=== PATIENT | male | born 1945 | race Caucasian/White ===

== ENCOUNTER 2022-12-15 08:59 | Emergency (ER) | payer OTHER ==
[2022-12-15] MEDS ORDERED: Iopamidol 300 61% 100 ML VIAL FS ONE (09:01)
[2022-12-15] MEDS ORDERED: Dicyclomine 20 MG/2 ML VIAL ONE (09:29)
[2022-12-15 10:14] LABS: Bilirubin Neg (Negative); Blood, Urine 250 (Negative); Clarity Slightly Cloudy (Clear); Glucose, Urine (Dipstick) Normal (Negative); Ketone, Urine 5 mg/dL (Negative); Leukocyte 500 (Negative); Nitrite Negative (Negative); Protein, Urine (Dipstick) 100 mg/dl (Neg-Trace); Specific Gravity, Urine 1.015 (1.005-1.030)
[2022-12-15 10:23] LABS: RBC/HPF Greater than 50 HPF (0-3)
[2022-12-15 10:24] LABS: CAUTI Indications for Culture Pelvic or flank pain; Renal Epithelial 0-3 HPF (None Seen)
[2022-12-15 10:25] LABS: Bacteria/HPF 1+ HPF (None Seen)
[2022-12-15 10:26] LABS: Urine Culture Reflex No No
[2022-12-15 10:58] LABS: Hematocrit 42.1 % (38.8-50.0); Hemoglobin 14.2 g/dL (13.5-17.5); Mean Corpuscular HGB CONC 33.7 g/dL (32.0-36.0); Mean Corpuscular Hemoglobin 30.1 pg (27.0-33.0); Mean Corpuscular Volume 89.2 fl (81.2-95.1); Mean Platelet Volume 9.9 fl (7.4-10.4); Platelet Count 193 10x3/uL (150-450); Red Blood Cell (RBC) Count 4.72 10x6/uL (4.32-5.72)
[2022-12-15 11:08] LABS: MDiff Complete? YES
[2022-12-15 11:17] LABS: Band 1 % (5-11); Lymphocytes 9 % (21-51); Monocytes 6 % (0-10); Neutrophil 82 % (42-75); Platelet Adequacy Comment Appears Adequate; RBC Morph Comment Within Normal Limits
[2022-12-15 11:18] LABS: ALT (SGPT) 8 U/L (8-55); AST (SGOT) 15 U/L (5-34); Albumin 3.3 g/dL (3.4-4.8); Alkaline Phosphatase 1704 U/L (40-110); Anion Gap 16 mmol/L (10-20); BUN (Urea Nitrogen) 20 mg/dL (8.4-25.7); Bilirubin, Total 0.8 mg/dL (0.2-1.2); Calc. Creatinine Clearance 0 mL/min (70-130); Carbon Dioxide 20 mmol/L (23-31); Chloride 105 mmol/L (98-107); Estimated GFR 63; Globulin 2.3 g/dL (2.4-3.5); Glucose 109 mg/dL (83-110); Magnesium 2.2 mg/dL (1.6-2.6); Potassium 4.1 mmol/L (3.5-5.1); Protein, Total 5.6 g/dL (5.8-8.1); Sodium 137 mmol/L (136-145)
[2022-12-15] MEDS ORDERED: cefTRIAXone (ROCEPHIN) 1 GM VIAL ONE (13:12)
[2022-12-16 11:54] LABS: #Monocytes 0.6 10x3/uL (0.0-1.1); #Neutrophils 5.1 10x3/uL (1.5-8.4); %Basophils 0.3 % (0.0-2.0); %Eosinophils 0.5 % (0.0-6.0); %Lymphocytes 13.5 % (18.0-47.0); %Monocytes 8.6 % (0.0-10.0); %Neutrophils 76.5 % (40.0-75.0); Hematocrit 42.8 % (38.8-50.0); Hemoglobin 14.5 g/dL (13.5-17.5); Mean Corpuscular HGB CONC 33.9 g/dL (32.0-36.0); Mean Corpuscular Volume 88.6 fl (81.2-95.1); Mean Platelet Volume 9.7 fl (7.4-10.4); Platelet Count 194 10x3/uL (150-450); Red Blood Cell (RBC) Count 4.83 10x6/uL (4.32-5.72); White Blood Cell (WBC) Count 6.7 10x3/uL (3.5-10.5)
[2022-12-16 12:04] LABS: ALT (SGPT) 7 U/L (8-55); AST (SGOT) 12 U/L (5-34); Albumin 3.1 g/dL (3.4-4.8); Alkaline Phosphatase 1467 U/L (40-110); Anion Gap 17 mmol/L (10-20); BUN (Urea Nitrogen) 23 mg/dL (8.4-25.7); Bilirubin, Total 0.5 mg/dL (0.2-1.2); Calc. Creatinine Clearance 0 mL/min (70-130); Calcium 7.6 mg/dL (7.8-10.44); Carbon Dioxide 18 mmol/L (23-31); Chloride 105 mmol/L (98-107); Estimated GFR 69; Globulin 2.3 g/dL (2.4-3.5); Glucose 98 mg/dL (83-110); Potassium 4.2 mmol/L (3.5-5.1); Protein, Total 5.4 g/dL (5.8-8.1); Sodium 136 mmol/L (136-145)
[2022-12-17 06:50] LABS: ALT (SGPT) 7 U/L (8-55); AST (SGOT) 12 U/L (5-34); Albumin 3.1 g/dL (3.4-4.8); Alkaline Phosphatase 1399 U/L (40-110); Anion Gap 15 mmol/L (10-20); BUN (Urea Nitrogen) 25 mg/dL (8.4-25.7); Bilirubin, Total 0.5 mg/dL (0.2-1.2); Calc. Creatinine Clearance 0 mL/min (70-130); Calcium 7.9 mg/dL (7.8-10.44); Carbon Dioxide 19 mmol/L (23-31); Chloride 106 mmol/L (98-107); Estimated GFR 69; Globulin 2.4 g/dL (2.4-3.5); Glucose 95 mg/dL (83-110); Potassium 4.2 mmol/L (3.5-5.1); Protein, Total 5.5 g/dL (5.8-8.1); Sodium 136 mmol/L (136-145)
== END 2022-12-17 01:02 ==
LOC: CSHERS 08:59
DX: N13.30 Unspecified hydronephrosis (principal); K62.89 Other specified diseases of anus and rectum; I10 Essential (primary) hypertension
CPT/HCPCS: 36415; 74177; 80053; 81001; 83735; 85025; 96372; 96374; J0696; Q9967

== ENCOUNTER 2022-12-22 21:03 | Inpatient (IN) | payer OTHER ==
[2022-12-22] MEDS ORDERED: Morphine 4 MG/ML VIAL ONE (22:01)
[2022-12-22] MEDS ORDERED: Ondansetron PF 4 MG/2 ML Vial ONE (22:01)
[2022-12-22 23:17] LABS: Hematocrit 43.2 % (38.8-50.0); Hemoglobin 14.4 g/dL (13.5-17.5); Mean Corpuscular HGB CONC 33.3 g/dL (32.0-36.0); Mean Corpuscular Hemoglobin 29.9 pg (27.0-33.0); Mean Corpuscular Volume 89.6 fl (81.2-95.1); Mean Platelet Volume 9.8 fl (7.4-10.4); Platelet Count 229 10x3/uL (150-450); RBC Distribution Width 13.9 % (11.5-14.5); Red Blood Cell (RBC) Count 4.82 10x6/uL (4.32-5.72)
[2022-12-22 23:21] LABS: ALT (SGPT) 21 U/L (8-55); AST (SGOT) 45 U/L (5-34); Albumin 3.3 g/dL (3.4-4.8); Alkaline Phosphatase 1637 U/L (40-110); Anion Gap 20 mmol/L (10-20); BUN (Urea Nitrogen) 25 mg/dL (8.4-25.7); Bilirubin, Total 1.1 mg/dL (0.2-1.2); Calc. Creatinine Clearance 0 mL/min (70-130); Carbon Dioxide 19 mmol/L (23-31); Chloride 103 mmol/L (98-107); Estimated GFR 45; Globulin 2.4 g/dL (2.4-3.5); Glucose 141 mg/dL (83-110); Lipase 25 U/L (8-78); Magnesium 3.1 mg/dL (1.6-2.6); Protein, Total 5.7 g/dL (5.8-8.1); Sodium 137 mmol/L (136-145)
[2022-12-22 23:45] LABS: Bilirubin 3+ (Negative); Blood, Urine 250 (Negative); Clarity Slightly Cloudy (Clear); Glucose, Urine (Dipstick) Normal (Negative); Ketone, Urine 15 mg/dL (Negative); Leukocyte 100 (Negative); Nitrite Negative (Negative); Protein, Urine (Dipstick) 30 mg/dl (Neg-Trace); Urobilinogen 12 mg/dL (Less than 2)
[2022-12-23 00:01] LABS: Bacteria/HPF 2+ HPF (None Seen); CAUTI Indications for Culture Pelvic or flank pain; RBC/HPF Greater than 50 HPF (0-3); Squamous Epithelial 0-3 HPF (0-3)
[2022-12-23 00:02] LABS: Mucous/LPF Rare LPF (<2+); Urine Culture Reflex Yes Yes
[2022-12-23 00:06] LABS: Manual Diff?? YES
[2022-12-23 00:16] LABS: Band 19 % (5-11); Lymphocytes 4 % (21-51); Monocytes 7 % (0-10); Reactive Lymphocytes 1 % (0-10)
[2022-12-23 00:19] LABS: RBC Morph Comment Within Normal Limits; Vacuoles SLIGHT
[2022-12-23 00:20] LABS: Platelet Adequacy Comment Appears Adequate
[2022-12-23] MEDS ORDERED: cefTRIAXone (ROCEPHIN) 1 GM VIAL ONE (00:25)
[2022-12-23 00:31] LABS: Neutrophil 69 % (42-75)
[2022-12-23 00:34] LABS: MDiff Complete? YES
[2022-12-23 01:50] LABS: Lactic Acid 2.6 mmol/L (0.5-2.2)
[2022-12-23] MEDS ORDERED: Morphine 4 MG/ML VIAL ONE (01:54)
[2022-12-23] MEDS ORDERED: Piperacillin/Tazobactam 3.375 GM VIAL ONE (02:40)
[2022-12-23] MEDS ORDERED: Calcium Carbonate 500 MG ChewTAB PO PRN (02:57)
[2022-12-23] MEDS ORDERED: Senokot S 8.6-50 MG TAB PO PRN (02:57)
[2022-12-23] MEDS ORDERED: Ondansetron PF 4 MG/2 ML Vial IVP PRN (02:57)
[2022-12-23] MEDS ORDERED: Acetaminophen 325 MG TAB PO PRN (02:57)
[2022-12-23] MEDS ORDERED: HYDROcodone/Acetaminophen 5/325 mg Tablet PO PRN (02:57)
[2022-12-23] MEDS ORDERED: Ondansetron PF 4 MG/2 ML Vial ONE (03:30)
[2022-12-23] MEDS ORDERED: Morphine 2 MG/ML VIAL SLOW IVP PRN (04:07)
[2022-12-23] MEDS ORDERED: Dextrose 5 % And 0.9 % NaCl 1,000 ML IV SCH (04:15)
[2022-12-23] MEDS ORDERED: Albumin 25% 25 GM/100 ML BOT IVPB SCH (04:30)
[2022-12-23 05:29] LABS: INR-International Normal Ratio 1.1; PTT 29.4 sec (22.0-33.0); Prothrombin Time 12.2 sec (9.5-12.1)
[2022-12-23 05:33] LABS: Hematocrit 47.6 % (38.8-50.0); Hemoglobin 15.4 g/dL (13.5-17.5); Lactic Acid 3.6 mmol/L (0.5-2.2); Mean Corpuscular HGB CONC 32.4 g/dL (32.0-36.0); Mean Corpuscular Hemoglobin 32.2 pg (27.0-33.0); Mean Corpuscular Volume 99.6 fl (81.2-95.1); Red Blood Cell (RBC) Count 4.78 10x6/uL (4.32-5.72); White Blood Cell (WBC) Count 7.1 10x3/uL (3.5-10.5)
[2022-12-23 05:37] LABS: ALT (SGPT) 44 U/L (8-55); AST (SGOT) 78 U/L (5-34); Albumin 3.1 g/dL (3.4-4.8); Alkaline Phosphatase 1595 U/L (40-110); Anion Gap 21 mmol/L (10-20); BUN (Urea Nitrogen) 28 mg/dL (8.4-25.7); Calc. Creatinine Clearance 0 mL/min (70-130); Calcium 7.7 mg/dL (7.8-10.44); Carbon Dioxide 14 mmol/L (23-31); Chloride 108 mmol/L (98-107); Estimated GFR 50; Globulin 2.6 g/dL (2.4-3.5); Glucose 148 mg/dL (83-110); Potassium 5.2 mmol/L (3.5-5.1); Protein, Total 5.7 g/dL (5.8-8.1); Sodium 138 mmol/L (136-145)
[2022-12-23 05:48] LABS: Mean Platelet Volume 10.2 fl (7.4-10.4); Platelet Count 215 10x3/uL (150-450)
[2022-12-23 05:52] LABS: MDiff Complete? YES
[2022-12-23] MEDS ORDERED: Vancomycin 1 GM in Sodium Chloride 0.9% 250 ML 250 ML IVPB SCH (06:00)
[2022-12-23 06:01] LABS: Band 22 % (5-11); Lymphocytes 2 % (21-51); Monocytes 4 % (0-10); Neutrophil 72 % (42-75)
[2022-12-23 06:03] LABS: Platelet Adequacy Comment Appears Adequate; RBC Morph Comment Within Normal Limits
[2022-12-23] MEDS ORDERED: Vancomycin 1 GM VIAL ONE (07:17)
[2022-12-23] MEDS: Aspirin 81 mg Enteric Coated Tablet PO SCH (08:49)
[2022-12-23] MEDS: Pantoprazole 40 MG VIAL IVP SCH (08:49)
[2022-12-23] MEDS ORDERED: Meropenem 1 GM in Sodium Chloride 0.9% 100 ML IVPB SCH (10:00)
[2022-12-23] MEDS ORDERED: Sodium Bicarbonate 150 MEQ in Dextrose 5% in Water 1,000 ML IV SCH ×2 (11:00→12:00)
[2022-12-23] MEDS: Albumin 25% 25 GM/100 ML BOT IVPB SCH ×3 (11:03→23:45)
[2022-12-23 15:10] LABS: Anion Gap 19 mmol/L (10-20); BUN (Urea Nitrogen) 33 mg/dL (8.4-25.7); Calc. Creatinine Clearance 33 mL/min (70-130); Calcium 7.4 mg/dL (7.8-10.44); Carbon Dioxide 18 mmol/L (23-31); Chloride 103 mmol/L (98-107); Estimated GFR 47; Glucose 208 mg/dL (83-110); Potassium 4.4 mmol/L (3.5-5.1); Sodium 136 mmol/L (136-145)
[2022-12-23] MEDS ORDERED: Lactated Ringer's 1,000 ML IV SCH (15:45)
[2022-12-23] MEDS ORDERED: Sodium Bicarbonate 150 MEQ, Admixture Fee 1 EACH in Dextrose 5% in Water 1,000 ML IV SCH ×2 (17:00→18:59)
[2022-12-23] MEDS: Meropenem 1 GM in Sodium Chloride 0.9% 100 ML IVPB SCH (17:22)
[2022-12-23] MEDS: Oxybutynin 5 MG TAB PO PRN (17:23)
[2022-12-23 18:33] LABS: Anion Gap 18 mmol/L (10-20); BUN (Urea Nitrogen) 32 mg/dL (8.4-25.7); Calc. Creatinine Clearance 35 mL/min (70-130); Calcium 7.3 mg/dL (7.8-10.44); Carbon Dioxide 19 mmol/L (23-31); Chloride 102 mmol/L (98-107); Estimated GFR 49; Glucose 129 mg/dL (83-110); Potassium 4.2 mmol/L (3.5-5.1); Sodium 135 mmol/L (136-145)
[2022-12-23 18:42] LABS: Lactic Acid 4.7 mmol/L (0.5-2.2)
[2022-12-23] MEDS ORDERED: Sodium Chloride 0.9% 1,000 ML IV SCH (18:59)
[2022-12-23] MEDS: Vancomycin HCl 125 MG Capsule PO SCH (20:04)
[2022-12-23] MEDS: Tamsulosin HCl 0.4 MG CAP PO SCH (20:04)
[2022-12-23 21:52] LABS: Anion Gap 18 mmol/L (10-20); BUN (Urea Nitrogen) 32 mg/dL (8.4-25.7); Calc. Creatinine Clearance 34 mL/min (70-130); Calcium 7.6 mg/dL (7.8-10.44); Carbon Dioxide 22 mmol/L (23-31); Chloride 102 mmol/L (98-107); Estimated GFR 49; Glucose 141 mg/dL (83-110); Potassium 3.9 mmol/L (3.5-5.1); Sodium 138 mmol/L (136-145)
[2022-12-23 21:55] LABS: Lactic Acid 4.2 mmol/L (0.5-2.2)
[2022-12-24] MEDS: Vancomycin HCl 125 MG Capsule PO SCH ×4 (01:20→20:00)
[2022-12-24 04:32] LABS: ALT (SGPT) 33 U/L (8-55); AST (SGOT) 50 U/L (5-34); Albumin 3.3 g/dL (3.4-4.8); Alkaline Phosphatase 823 U/L (40-110); Anion Gap 16 mmol/L (10-20); BUN (Urea Nitrogen) 29 mg/dL (8.4-25.7); Calc. Creatinine Clearance 36 mL/min (70-130); Calcium 7.4 mg/dL (7.8-10.44); Carbon Dioxide 26 mmol/L (23-31); Chloride 101 mmol/L (98-107); Estimated GFR 52; Globulin 1.7 g/dL (2.4-3.5); Glucose 134 mg/dL (83-110); Magnesium 2.6 mg/dL (1.6-2.6); Potassium 3.6 mmol/L (3.5-5.1); Sodium 139 mmol/L (136-145)
[2022-12-24 04:36] LABS: Hematocrit 34.5 % (38.8-50.0); Hemoglobin 12.1 g/dL (13.5-17.5); Mean Corpuscular HGB CONC 35.1 g/dL (32.0-36.0); Mean Corpuscular Hemoglobin 30.9 pg (27.0-33.0); Mean Corpuscular Volume 88.2 fl (81.2-95.1); Platelet Count 211 10x3/uL (150-450); RBC Distribution Width 14.5 % (11.5-14.5); Red Blood Cell (RBC) Count 3.91 10x6/uL (4.32-5.72); White Blood Cell (WBC) Count 9.5 10x3/uL (3.5-10.5)
[2022-12-24 04:40] LABS: MDiff Complete? YES
[2022-12-24 04:55] LABS: Band 35 % (5-11); Lymphocytes 5 % (21-51); Metamyelocyte 2 % (0-0); Monocytes 9 % (0-10); Neutrophil 49 % (42-75)
[2022-12-24 04:56] LABS: RBC Morph Comment Within Normal Limits; Toxic Granulation SLIGHT; Vacuoles SLIGHT
[2022-12-24 04:57] LABS: Platelet Adequacy Comment Appears Adequate
[2022-12-24] MEDS: Vancomycin HCl 750 MG in Sodium Chloride 0.9% 250 ML 250 ML IVPB SCH (05:04)
[2022-12-24] MEDS: Meropenem 1 GM in Sodium Chloride 0.9% 100 ML IVPB SCH ×2 (05:04→17:03)
[2022-12-24] MEDS: Albumin 25% 25 GM/100 ML BOT IVPB SCH (05:05)
[2022-12-24] MEDS: Pantoprazole 40 MG VIAL IVP SCH (08:50)
[2022-12-24] MEDS: Aspirin 81 mg Enteric Coated Tablet PO SCH (08:50)
[2022-12-24] MEDS: Oxybutynin 5 MG TAB PO PRN (08:50)
[2022-12-24] MEDS ORDERED: Potassium Chloride 20 MEQ TAB PO SCH (12:00)
[2022-12-24] MEDS: Lactated Ringer's 1,000 ML IV SCH (12:49)
[2022-12-24] MEDS: Tamsulosin HCl 0.4 MG CAP PO SCH (20:58)
[2022-12-25] MEDS: Lactated Ringer's 1,000 ML IV SCH (01:00)
[2022-12-25] MEDS: Vancomycin HCl 125 MG Capsule PO SCH ×4 (02:08→21:49)
[2022-12-25 03:59] LABS: ALT (SGPT) 21 U/L (8-55); AST (SGOT) 33 U/L (5-34); Alkaline Phosphatase 662 U/L (40-110); Anion Gap 16 mmol/L (10-20); BUN (Urea Nitrogen) 24 mg/dL (8.4-25.7); Bilirubin, Total 0.7 mg/dL (0.2-1.2); Calc. Creatinine Clearance 45 mL/min (70-130); Calcium 7.2 mg/dL (7.8-10.44); Carbon Dioxide 26 mmol/L (23-31); Chloride 102 mmol/L (98-107); Estimated GFR 62; Globulin 1.8 g/dL (2.4-3.5); Glucose 86 mg/dL (83-110); Magnesium 2.5 mg/dL (1.6-2.6); Potassium 3.5 mmol/L (3.5-5.1); Protein, Total 4.8 g/dL (5.8-8.1); Sodium 140 mmol/L (136-145)
[2022-12-25 04:22] LABS: Band 15 % (5-11); Lymphocytes 11 % (21-51); Monocytes 4 % (0-10); Neutrophil 70 % (42-75)
[2022-12-25 04:23] LABS: Platelet Adequacy Comment Appears Adequate; RBC Morph Comment Within Normal Limits
[2022-12-25 04:24] LABS: Hematocrit 36.3 % (38.8-50.0); Hemoglobin 12.3 g/dL (13.5-17.5); MDiff Complete? YES; Mean Corpuscular HGB CONC 33.9 g/dL (32.0-36.0); Mean Corpuscular Hemoglobin 30.8 pg (27.0-33.0); Mean Corpuscular Volume 90.8 fl (81.2-95.1); Mean Platelet Volume 10.6 fl (7.4-10.4); Platelet Count 177 10x3/uL (150-450); RBC Distribution Width 14.7 % (11.5-14.5); White Blood Cell (WBC) Count 7.6 10x3/uL (3.5-10.5)
[2022-12-25 06:04] LABS: Vancomycin, Trough 8.9 ug/mL
[2022-12-25] MEDS: Meropenem 1 GM in Sodium Chloride 0.9% 100 ML IVPB SCH ×2 (06:47→18:00)
[2022-12-25] MEDS: Vancomycin 1 GM in Sodium Chloride 0.9% 250 ML 250 ML IVPB SCH (06:49)
[2022-12-25] MEDS: Vancomycin HCl 750 MG in Sodium Chloride 0.9% 250 ML 250 ML IVPB SCH (07:18)
[2022-12-25] MEDS: Saccharomyces boulardii 250 MG CAP PO SCH (08:17)
[2022-12-25] MEDS: Aspirin 81 mg Enteric Coated Tablet PO SCH (08:18)
[2022-12-25] MEDS: Pantoprazole 40 MG VIAL IVP SCH (08:19)
[2022-12-25] MEDS ORDERED: Bicalutamide 50 MG TAB PO SCH (13:00)
[2022-12-25] MEDS ORDERED: Potassium Chloride 20 MEQ TAB PO SCH (17:00)
[2022-12-25] MEDS: Tamsulosin HCl 0.4 MG CAP PO SCH (21:36)
[2022-12-26] MEDS: Vancomycin HCl 125 MG Capsule PO SCH ×4 (03:11→22:26)
[2022-12-26 05:52] LABS: ALT (SGPT) 13 U/L (8-55); AST (SGOT) 19 U/L (5-34); Albumin 2.8 g/dL (3.4-4.8); Alkaline Phosphatase 757 U/L (40-110); Anion Gap 12 mmol/L (10-20); BUN (Urea Nitrogen) 22 mg/dL (8.4-25.7); Bilirubin, Total 0.7 mg/dL (0.2-1.2); Calc. Creatinine Clearance 59 mL/min (70-130); Calcium 7.3 mg/dL (7.8-10.44); Carbon Dioxide 26 mmol/L (23-31); Chloride 104 mmol/L (98-107); Estimated GFR 83; Globulin 1.8 g/dL (2.4-3.5); Glucose 87 mg/dL (83-110); Magnesium 2.4 mg/dL (1.6-2.6); Potassium 3.8 mmol/L (3.5-5.1); Protein, Total 4.6 g/dL (5.8-8.1); Sodium 138 mmol/L (136-145)
[2022-12-26] MEDS: Meropenem 1 GM in Sodium Chloride 0.9% 100 ML IVPB SCH ×3 (06:07→21:15)
[2022-12-26] MEDS: Vancomycin 1 GM in Sodium Chloride 0.9% 250 ML 250 ML IVPB SCH (06:08)
[2022-12-26 06:24] LABS: Band 9 % (5-11); Lymphocytes 16 % (21-51); Monocytes 6 % (0-10); Reactive Lymphocytes 2 % (0-10)
[2022-12-26 06:38] LABS: Platelet Adequacy Comment Appears Adequate
[2022-12-26 06:39] LABS: Hematocrit 39.2 % (38.8-50.0); Hemoglobin 13.2 g/dL (13.5-17.5); Mean Corpuscular HGB CONC 33.7 g/dL (32.0-36.0); Mean Corpuscular Hemoglobin 30.2 pg (27.0-33.0); Mean Corpuscular Volume 89.7 fl (81.2-95.1); Mean Platelet Volume 10.3 fl (7.4-10.4); Neutrophil 67 % (42-75); Platelet Count 232 10x3/uL (150-450); RBC Distribution Width 14.3 % (11.5-14.5); RBC Morph Comment Within Normal Limits; Red Blood Cell (RBC) Count 4.37 10x6/uL (4.32-5.72); White Blood Cell (WBC) Count 6.8 10x3/uL (3.5-10.5)
[2022-12-26 06:56] LABS: MDiff Complete? YES
[2022-12-26] MEDS: Pantoprazole 40 MG VIAL IVP SCH (09:10)
[2022-12-26] MEDS: K-Phos Neutral 250 MG TAB PO SCH ×3 (09:11→18:42)
[2022-12-26] MEDS: Saccharomyces boulardii 250 MG CAP PO SCH (09:12)
[2022-12-26] MEDS: Bicalutamide 50 MG TAB PO SCH (10:03)
[2022-12-26] MEDS: Famotidine 20 MG TAB PO SCH (22:25)
[2022-12-26] MEDS: Tamsulosin HCl 0.4 MG CAP PO SCH (22:26)
[2022-12-27] MEDS: Vancomycin HCl 125 MG Capsule PO SCH ×4 (03:40→20:43)
[2022-12-27 05:27] LABS: Phosphorus 2.3 mg/dL (2.3-4.7)
[2022-12-27 05:28] LABS: Vancomycin, Trough 11.3 ug/mL
[2022-12-27 05:31] LABS: ALT (SGPT) 12 U/L (8-55); AST (SGOT) 18 U/L (5-34); Albumin 2.8 g/dL (3.4-4.8); Alkaline Phosphatase 876 U/L (40-110); Anion Gap 13 mmol/L (10-20); BUN (Urea Nitrogen) 22 mg/dL (8.4-25.7); Bilirubin, Total 0.6 mg/dL (0.2-1.2); Calc. Creatinine Clearance 77 mL/min (70-130); Calcium 7.2 mg/dL (7.8-10.44); Carbon Dioxide 22 mmol/L (23-31); Chloride 106 mmol/L (98-107); Estimated GFR 90; Globulin 1.8 g/dL (2.4-3.5); Glucose 98 mg/dL (83-110); Protein, Total 4.6 g/dL (5.8-8.1); Sodium 137 mmol/L (136-145)
[2022-12-27] MEDS: Vancomycin 1 GM in Sodium Chloride 0.9% 250 ML 250 ML IVPB SCH (05:40)
[2022-12-27] MEDS: Meropenem 1 GM in Sodium Chloride 0.9% 100 ML IVPB SCH ×3 (05:40→22:50)
[2022-12-27 06:14] LABS: MDiff Complete? YES
[2022-12-27 06:17] LABS: Band 13 % (5-11); Eosinophils 2 % (0-10); Lymphocytes 18 % (21-51); Monocytes 7 % (0-10); Neutrophil 55 % (42-75); Platelet Adequacy Comment Appears Adequate; Reactive Lymphocytes 5 % (0-10)
[2022-12-27 06:18] LABS: Hematocrit 41.4 % (38.8-50.0); Hemoglobin 13.9 g/dL (13.5-17.5); Mean Corpuscular HGB CONC 33.6 g/dL (32.0-36.0); Mean Corpuscular Hemoglobin 29.8 pg (27.0-33.0); Mean Corpuscular Volume 88.8 fl (81.2-95.1); Mean Platelet Volume 10.1 fl (7.4-10.4); Platelet Count 253 10x3/uL (150-450); RBC Distribution Width 14.1 % (11.5-14.5); RBC Morph Comment Within Normal Limits; Red Blood Cell (RBC) Count 4.66 10x6/uL (4.32-5.72); Toxic Granulation SLIGHT
[2022-12-27 08:20] LABS: Adenovirus F 40-41 Not Detected (Not Detected); Astrovirus Not Detected (Not Detected); C. difficile toxin A+B DETECTED (Not Detected); Campylobacter by PCR Not Detected (Not Detected); Cryptosporidium Not Detected (Not Detected); Cyclospora cayetanensis Not Detected (Not Detected); Entamoeba histolytica Not Detected (Not Detected); Enteroaggregative E. coli Not Detected (Not Detected); Enteropathogenic E. coli DETECTED (Not Detected); Enterotoxigenic E. coli Not Detected (Not Detected); Giardia lamblia Not Detected (Not Detected); Norovirus GI-GII Not Detected (Not Detected); Plesiomonas shigelloides Not Detected (Not Detected); Rotavirus A Not Detected (Not Detected); Salmonella Not Detected (Not Detected); Sapovirus Not Detected (Not Detected); Shiga-toxin-producing E coli Not Detected (Not Detected); Shigella/Enteroinvasive E coli Not Detected (Not Detected); Vibrio Not Detected (Not Detected); Vibrio cholerae Not Detected (Not Detected); Yersinia enterocolitica Not Detected (Not Detected)
[2022-12-27] MEDS: Famotidine 20 MG TAB PO SCH ×2 (09:10→20:44)
[2022-12-27] MEDS: Bicalutamide 50 MG TAB PO SCH (09:10)
[2022-12-27] MEDS: K-Phos Neutral 250 MG TAB PO SCH ×3 (09:10→17:59)
[2022-12-27] MEDS: Aspirin 81 mg Enteric Coated Tablet PO SCH (09:19)
[2022-12-27] MEDS: Vancomycin HCl 750 MG in Sodium Chloride 0.9% 250 ML 250 ML IVPB SCH (17:56)
[2022-12-27] MEDS: Carvedilol 6.25 MG TAB PO SCH (17:58)
[2022-12-27] MEDS: Tamsulosin HCl 0.4 MG CAP PO SCH (20:44)
[2022-12-27] MEDS: Saccharomyces boulardii 250 MG CAP PO SCH (20:45)
[2022-12-28] MEDS: Vancomycin HCl 125 MG Capsule PO SCH ×4 (02:15→20:48)
[2022-12-28 03:50] LABS: Hematocrit 43.1 % (38.8-50.0); Hemoglobin 14.1 g/dL (13.5-17.5); Mean Corpuscular HGB CONC 32.7 g/dL (32.0-36.0); Mean Corpuscular Hemoglobin 29.7 pg (27.0-33.0); Mean Corpuscular Volume 90.7 fl (81.2-95.1); Platelet Count 236 10x3/uL (150-450); RBC Distribution Width 14.2 % (11.5-14.5); Red Blood Cell (RBC) Count 4.75 10x6/uL (4.32-5.72)
[2022-12-28 03:58] LABS: MDiff Complete? YES
[2022-12-28 04:04] LABS: ALT (SGPT) 14 U/L (8-55); AST (SGOT) 25 U/L (5-34); Albumin 2.6 g/dL (3.4-4.8); Alkaline Phosphatase 950 U/L (40-110); Anion Gap 14 mmol/L (10-20); BUN (Urea Nitrogen) 25 mg/dL (8.4-25.7); Bilirubin, Total 0.5 mg/dL (0.2-1.2); Calc. Creatinine Clearance 78 mL/min (70-130); Carbon Dioxide 20 mmol/L (23-31); Chloride 108 mmol/L (98-107); Estimated GFR 91; Globulin 1.8 g/dL (2.4-3.5); Glucose 127 mg/dL (83-110); Potassium 4.1 mmol/L (3.5-5.1); Protein, Total 4.4 g/dL (5.8-8.1); Sodium 138 mmol/L (136-145)
[2022-12-28 04:13] LABS: Calcium 6.9 mg/dL (7.8-10.44)
[2022-12-28 04:14] LABS: Phosphorus 2.8 mg/dL (2.3-4.7)
[2022-12-28 04:16] LABS: Platelet Adequacy Comment Appears Adequate; RBC Morph Comment Within Normal Limits
[2022-12-28 04:21] LABS: Band 15 % (5-11); Eosinophils 4 % (0-10); Lymphocytes 19 % (21-51); Monocytes 15 % (0-10); Neutrophil 47 % (42-75)
[2022-12-28] MEDS: Vancomycin HCl 750 MG in Sodium Chloride 0.9% 250 ML 250 ML IVPB SCH ×2 (05:12→17:12)
[2022-12-28] MEDS ORDERED: VANCOMYCIN 1.25 GM/250 ML BAG 1.25 GM in Premix 1 BAG IVPB SCH (06:00)
[2022-12-28] MEDS: Meropenem 1 GM in Sodium Chloride 0.9% 100 ML IVPB SCH ×3 (07:01→22:14)
[2022-12-28] MEDS: Aspirin 81 mg Enteric Coated Tablet PO SCH (08:28)
[2022-12-28] MEDS: Calcium Carbonate 500 MG ChewTAB PO SCH ×2 (08:28→20:47)
[2022-12-28] MEDS: Carvedilol 6.25 MG TAB PO SCH ×2 (08:28→17:12)
[2022-12-28] MEDS: Famotidine 20 MG TAB PO SCH ×2 (08:29→20:47)
[2022-12-28] MEDS: Bicalutamide 50 MG TAB PO SCH (08:29)
[2022-12-28 17:41] LABS: Vancomycin, Trough 22.1 ug/mL
[2022-12-28] MEDS: Tamsulosin HCl 0.4 MG CAP PO SCH (20:47)
[2022-12-28] MEDS: Saccharomyces boulardii 250 MG CAP PO SCH (20:47)
[2022-12-29] MEDS: Vancomycin HCl 125 MG Capsule PO SCH ×4 (02:23→20:46)
[2022-12-29] MEDS: Vancomycin HCl 750 MG in Sodium Chloride 0.9% 250 ML 250 ML IVPB SCH (05:35)
[2022-12-29 06:22] LABS: Hematocrit 40.6 % (38.8-50.0); Hemoglobin 13.5 g/dL (13.5-17.5); Mean Corpuscular HGB CONC 33.3 g/dL (32.0-36.0); Mean Corpuscular Hemoglobin 29.7 pg (27.0-33.0); Mean Corpuscular Volume 89.2 fl (81.2-95.1); Mean Platelet Volume 9.6 fl (7.4-10.4); Platelet Count 238 10x3/uL (150-450); RBC Distribution Width 14.3 % (11.5-14.5); Red Blood Cell (RBC) Count 4.55 10x6/uL (4.32-5.72); White Blood Cell (WBC) Count 7.8 10x3/uL (3.5-10.5)
[2022-12-29 06:24] LABS: MDiff Complete? YES
[2022-12-29 06:43] LABS: Vancomycin, Trough 28.3 ug/mL
[2022-12-29 06:46] LABS: Anion Gap 14 mmol/L (10-20); BUN (Urea Nitrogen) 24 mg/dL (8.4-25.7); Calc. Creatinine Clearance 0 mL/min (70-130); Calcium 7.1 mg/dL (7.8-10.44); Carbon Dioxide 20 mmol/L (23-31); Chloride 109 mmol/L (98-107); Estimated GFR 92; Glucose 90 mg/dL (83-110); Magnesium 2.3 mg/dL (1.6-2.6); Potassium 3.9 mmol/L (3.5-5.1); Sodium 139 mmol/L (136-145)
[2022-12-29 06:51] LABS: Platelet Adequacy Comment Appears Adequate; RBC Morph Comment Within Normal Limits
[2022-12-29 06:53] LABS: Band 10 % (5-11); Eosinophils 2 % (0-10); Lymphocytes 15 % (21-51); Monocytes 11 % (0-10); Neutrophil 62 % (42-75)
[2022-12-29] MEDS: Meropenem 1 GM in Sodium Chloride 0.9% 100 ML IVPB SCH ×3 (07:20→21:36)
[2022-12-29] MEDS: Calcium Carbonate 500 MG ChewTAB PO SCH ×2 (11:10→20:45)
[2022-12-29] MEDS: Famotidine 20 MG TAB PO SCH ×2 (11:10→20:45)
[2022-12-29] MEDS: Aspirin 81 mg Enteric Coated Tablet PO SCH (11:11)
[2022-12-29] MEDS: Carvedilol 6.25 MG TAB PO SCH ×2 (11:11→17:49)
[2022-12-29] MEDS: Bicalutamide 50 MG TAB PO SCH (11:12)
[2022-12-29] MEDS: Saccharomyces boulardii 250 MG CAP PO SCH (20:46)
[2022-12-29] MEDS: Tamsulosin HCl 0.4 MG CAP PO SCH (20:46)
[2022-12-29] MEDS ORDERED: Vancomycin HCl 750 MG in Sodium Chloride 0.9% 250 ML 250 ML IVPB SCH (21:00)
[2022-12-30] MEDS: Vancomycin HCl 125 MG Capsule PO SCH ×4 (01:14→20:38)
[2022-12-30 04:18] LABS: Hematocrit 41.8 % (38.8-50.0); Hemoglobin 14.2 g/dL (13.5-17.5); Mean Corpuscular Hemoglobin 30.7 pg (27.0-33.0); Mean Corpuscular Volume 90.3 fl (81.2-95.1); Platelet Count 263 10x3/uL (150-450); RBC Distribution Width 14.5 % (11.5-14.5); Red Blood Cell (RBC) Count 4.63 10x6/uL (4.32-5.72); White Blood Cell (WBC) Count 8.3 10x3/uL (3.5-10.5)
[2022-12-30 04:30] LABS: Anion Gap 13 mmol/L (10-20); BUN (Urea Nitrogen) 25 mg/dL (8.4-25.7); Calc. Creatinine Clearance 83 mL/min (70-130); Calcium 7.1 mg/dL (7.8-10.44); Carbon Dioxide 17 mmol/L (23-31); Chloride 110 mmol/L (98-107); Estimated GFR 91; Glucose 84 mg/dL (83-110); Potassium 4.2 mmol/L (3.5-5.1); Sodium 136 mmol/L (136-145)
[2022-12-30 04:47] LABS: MDiff Complete? YES
[2022-12-30 05:08] LABS: Platelet Adequacy Comment Appears Adequate; RBC Morph Comment Within Normal Limits
[2022-12-30 05:11] LABS: Band 10 % (5-11); Eosinophils 1 % (0-10); Lymphocytes 13 % (21-51); Monocytes 9 % (0-10); Neutrophil 67 % (42-75)
[2022-12-30] MEDS: Meropenem 1 GM in Sodium Chloride 0.9% 100 ML IVPB SCH ×3 (06:04→23:04)
[2022-12-30] MEDS: Aspirin 81 mg Enteric Coated Tablet PO SCH (08:59)
[2022-12-30] MEDS: Folic Acid 1 MG TAB PO SCH (08:59)
[2022-12-30] MEDS: Famotidine 20 MG TAB PO SCH ×2 (08:59→20:40)
[2022-12-30] MEDS: Thiamine 100 MG TAB PO SCH (08:59)
[2022-12-30] MEDS: Calcium Carbonate 500 MG ChewTAB PO SCH ×3 (08:59→20:43)
[2022-12-30] MEDS: Multivitamin W/ Minerals 1 TAB PO SCH (08:59)
[2022-12-30] MEDS: Carvedilol 6.25 MG TAB PO SCH ×2 (08:59→16:13)
[2022-12-30] MEDS: Bicalutamide 50 MG TAB PO SCH (08:59)
[2022-12-30] MEDS ORDERED: Senokot S 8.6-50 MG TAB PO SCH (09:00)
[2022-12-30] MEDS ORDERED: Ergocalciferol 1.25 MG(50,000 UNITS) CAP PO SCH (09:00)
[2022-12-30] MEDS: Cyanocobalamin (Vitamin B-12) 1,000 MCG TAB PO SCH (20:40)
[2022-12-30] MEDS: Saccharomyces boulardii 250 MG CAP PO SCH (20:40)
[2022-12-30] MEDS: Sodium Bicarbonate Tab 325 MG TAB PO SCH (20:40)
[2022-12-30] MEDS: Tamsulosin HCl 0.4 MG CAP PO SCH (20:41)
[2022-12-31] MEDS: Vancomycin HCl 125 MG Capsule PO SCH ×4 (02:27→20:58)
[2022-12-31 04:02] LABS: #Eosinphils 0.1 10x3/uL (0.0-0.5); #Monocytes 0.5 10x3/uL (0.0-1.1); #Neutrophils 5.2 10x3/uL (1.5-8.4); %Basophils 0.6 % (0.0-2.0); %Lymphocytes 12.8 % (18.0-47.0); %Monocytes 7.2 % (0.0-10.0); %Neutrophils 76.6 % (40.0-75.0); Hematocrit 37.6 % (38.8-50.0); Hemoglobin 12.7 g/dL (13.5-17.5); Mean Corpuscular HGB CONC 33.8 g/dL (32.0-36.0); Mean Corpuscular Hemoglobin 30.1 pg (27.0-33.0); Mean Corpuscular Volume 89.1 fl (81.2-95.1); Mean Platelet Volume 9.8 fl (7.4-10.4); Platelet Count 273 10x3/uL (150-450); RBC Distribution Width 14.3 % (11.5-14.5); Red Blood Cell (RBC) Count 4.22 10x6/uL (4.32-5.72); White Blood Cell (WBC) Count 6.8 10x3/uL (3.5-10.5)
[2022-12-31 04:13] LABS: Phosphorus 2.8 mg/dL (2.3-4.7)
[2022-12-31 04:15] LABS: Anion Gap 13 mmol/L (10-20); BUN (Urea Nitrogen) 26 mg/dL (8.4-25.7); Calc. Creatinine Clearance 81 mL/min (70-130); Carbon Dioxide 19 mmol/L (23-31); Chloride 110 mmol/L (98-107); Estimated GFR 90; Glucose 86 mg/dL (83-110); Magnesium 2.4 mg/dL (1.6-2.6); Potassium 4.2 mmol/L (3.5-5.1); Sodium 138 mmol/L (136-145)
[2022-12-31] MEDS: Meropenem 1 GM in Sodium Chloride 0.9% 100 ML IVPB SCH ×3 (07:12→22:41)
[2022-12-31] MEDS: Calcium Carbonate 500 MG ChewTAB PO SCH ×3 (08:52→20:59)
[2022-12-31] MEDS: Carvedilol 6.25 MG TAB PO SCH ×2 (08:53→17:11)
[2022-12-31] MEDS: Folic Acid 1 MG TAB PO SCH (08:53)
[2022-12-31] MEDS: Bicalutamide 50 MG TAB PO SCH (08:53)
[2022-12-31] MEDS: Thiamine 100 MG TAB PO SCH (08:53)
[2022-12-31] MEDS: Multivitamin W/ Minerals 1 TAB PO SCH (08:53)
[2022-12-31] MEDS: Famotidine 20 MG TAB PO SCH ×2 (08:53→21:00)
[2022-12-31] MEDS: Aspirin 81 mg Enteric Coated Tablet PO SCH (08:53)
[2022-12-31] MEDS: Sodium Bicarbonate Tab 325 MG TAB PO SCH (08:53)
[2022-12-31] MEDS: Cyanocobalamin (Vitamin B-12) 1,000 MCG TAB PO SCH (20:59)
[2022-12-31] MEDS: Tamsulosin HCl 0.4 MG CAP PO SCH (20:59)
[2022-12-31] MEDS: Saccharomyces boulardii 250 MG CAP PO SCH (21:00)
[2023-01-01] MEDS: Vancomycin HCl 125 MG Capsule PO SCH ×4 (02:56→20:47)
[2023-01-01 04:34] LABS: ALT (SGPT) 11 U/L (8-55); AST (SGOT) 22 U/L (5-34); Albumin 2.4 g/dL (3.4-4.8); Alkaline Phosphatase 1322 U/L (40-110); Anion Gap 13 mmol/L (10-20); BUN (Urea Nitrogen) 24 mg/dL (8.4-25.7); Bilirubin, Total 0.4 mg/dL (0.2-1.2); Calc. Creatinine Clearance 0 mL/min (70-130); Calcium 7.2 mg/dL (7.8-10.44); Carbon Dioxide 20 mmol/L (23-31); Chloride 109 mmol/L (98-107); Estimated GFR 86; Globulin 1.9 g/dL (2.4-3.5); Glucose 104 mg/dL (83-110); Potassium 4.5 mmol/L (3.5-5.1); Protein, Total 4.3 g/dL (5.8-8.1); Sodium 137 mmol/L (136-145)
[2023-01-01 04:37] LABS: #Basophils 0.1 10x3/uL (0.0-0.2); #Eosinphils 0.1 10x3/uL (0.0-0.5); #Monocytes 0.5 10x3/uL (0.0-1.1); #Neutrophils 4.9 10x3/uL (1.5-8.4); %Basophils 0.8 % (0.0-2.0); %Eosinophils 1.2 % (0.0-6.0); %Lymphocytes 13.9 % (18.0-47.0); %Monocytes 7.3 % (0.0-10.0); %Neutrophils 74.7 % (40.0-75.0); Hematocrit 39.9 % (38.8-50.0); Hemoglobin 13.2 g/dL (13.5-17.5); Mean Corpuscular HGB CONC 33.1 g/dL (32.0-36.0); Mean Corpuscular Hemoglobin 29.5 pg (27.0-33.0); Mean Corpuscular Volume 89.1 fl (81.2-95.1); Mean Platelet Volume 9.2 fl (7.4-10.4); Platelet Count 285 10x3/uL (150-450); RBC Distribution Width 14.1 % (11.5-14.5); Red Blood Cell (RBC) Count 4.48 10x6/uL (4.32-5.72); White Blood Cell (WBC) Count 6.6 10x3/uL (3.5-10.5)
[2023-01-01] MEDS: Meropenem 1 GM in Sodium Chloride 0.9% 100 ML IVPB SCH ×3 (05:56→22:10)
[2023-01-01] MEDS: Carvedilol 6.25 MG TAB PO SCH ×2 (09:11→17:40)
[2023-01-01] MEDS: Calcium Carbonate 500 MG ChewTAB PO SCH ×3 (09:11→20:37)
[2023-01-01] MEDS: Famotidine 20 MG TAB PO SCH ×2 (09:11→20:38)
[2023-01-01] MEDS: Aspirin 81 mg Enteric Coated Tablet PO SCH (09:11)
[2023-01-01] MEDS: Folic Acid 1 MG TAB PO SCH (09:11)
[2023-01-01] MEDS: Thiamine 100 MG TAB PO SCH (09:11)
[2023-01-01] MEDS: Multivitamin W/ Minerals 1 TAB PO SCH (09:11)
[2023-01-01] MEDS: Bicalutamide 50 MG TAB PO SCH (09:14)
[2023-01-01] MEDS: Saccharomyces boulardii 250 MG CAP PO SCH (20:37)
[2023-01-01] MEDS: Cyanocobalamin (Vitamin B-12) 1,000 MCG TAB PO SCH (20:38)
[2023-01-01] MEDS: Tamsulosin HCl 0.4 MG CAP PO SCH (20:38)
[2023-01-02] MEDS: Vancomycin HCl 125 MG Capsule PO SCH ×2 (01:56→08:35)
[2023-01-02 04:01] LABS: Anion Gap 11 mmol/L (10-20); BUN (Urea Nitrogen) 21 mg/dL (8.4-25.7); Calc. Creatinine Clearance 84 mL/min (70-130); Calcium 7.2 mg/dL (7.8-10.44); Carbon Dioxide 20 mmol/L (23-31); Chloride 109 mmol/L (98-107); Estimated GFR 92; Glucose 89 mg/dL (83-110); Potassium 4.5 mmol/L (3.5-5.1); Sodium 135 mmol/L (136-145)
[2023-01-02 04:09] LABS: #Basophils 0.1 10x3/uL (0.0-0.2); #Eosinphils 0.1 10x3/uL (0.0-0.5); #Monocytes 0.6 10x3/uL (0.0-1.1); #Neutrophils 4.3 10x3/uL (1.5-8.4); %Basophils 0.8 % (0.0-2.0); %Eosinophils 1.5 % (0.0-6.0); %Lymphocytes 15.6 % (18.0-47.0); %Neutrophils 70.4 % (40.0-75.0); Hematocrit 40.5 % (38.8-50.0); Hemoglobin 13.6 g/dL (13.5-17.5); Mean Corpuscular HGB CONC 33.6 g/dL (32.0-36.0); Mean Corpuscular Hemoglobin 30.2 pg (27.0-33.0); Mean Platelet Volume 9.6 fl (7.4-10.4); Platelet Count 296 10x3/uL (150-450); RBC Distribution Width 14.1 % (11.5-14.5)
[2023-01-02] MEDS: Meropenem 1 GM in Sodium Chloride 0.9% 100 ML IVPB SCH (05:55)
[2023-01-02 06:02] VITALS: BMI 22.3
[2023-01-02] MEDS: Folic Acid 1 MG TAB PO SCH (08:31)
[2023-01-02] MEDS: Carvedilol 6.25 MG TAB PO SCH (08:31)
[2023-01-02] MEDS: Thiamine 100 MG TAB PO SCH (08:31)
[2023-01-02] MEDS: Famotidine 20 MG TAB PO SCH (08:31)
[2023-01-02] MEDS: Multivitamin W/ Minerals 1 TAB PO SCH (08:32)
[2023-01-02] MEDS: Bicalutamide 50 MG TAB PO SCH (08:32)
[2023-01-02] MEDS: Calcium Carbonate 500 MG ChewTAB PO SCH (08:32)
[2023-01-02 08:41] VITALS: BP 126/73; TEMP 97.9
== END 2023-01-02 11:35 | disposition short-term general hospital (02) | DRG 872 ==
LOC: EEVIPCON 21:03 → CSHERS 21:03 → CSHERHOLD 12-23 02:57 → CSHIMCU 12-23 08:11 → CSHTELE 12-25 17:22
PROVIDERS: ADMIT Student in an Organized Health Care Education/Training Program; ATTEND Hospitalist
PROC: 30233J1 Transfusion of Nonautologous Serum Albumin into Peripheral Vein, Percutaneous Approach (ICD-10-PCS; principal; 2022-12-23)
PROC: 3E03329 Introduction of Other Anti-infective into Peripheral Vein, Percutaneous Approach (ICD-10-PCS; 2022-12-23)
DX: A41.9 Sepsis, unspecified organism (principal); N17.9 Acute kidney failure, unspecified; E87.20 Acidosis, unspecified; R64 Cachexia; C78.7 Secondary malignant neoplasm of liver and intrahepatic bile duct; C79.51 Secondary malignant neoplasm of bone; A04.72 Enterocolitis due to Clostridium difficile, not specified as recurrent; N13.6 Pyonephrosis; I47.20 Ventricular tachycardia, unspecified; E44.0 Moderate protein-calorie malnutrition; R65.20 Severe sepsis without septic shock; N40.0 Benign prostatic hyperplasia without lower urinary tract symptoms; C61 Malignant neoplasm of prostate; I12.9 Hypertensive chronic kidney disease with stage 1 through stage 4 chronic kidney disease, or unspecified chronic kidney disease; N18.9 Chronic kidney disease, unspecified; K62.89 Other specified diseases of anus and rectum; N32.89 Other specified disorders of bladder; N13.9 Obstructive and reflux uropathy, unspecified; E87.5 Hyperkalemia; R74.01 Elevation of levels of liver transaminase levels; E83.51 Hypocalcemia; Z79.82 Long term (current) use of aspirin; Z98.890 Other specified postprocedural states; Z79.899 Other long term (current) drug therapy; Z68.22 Body mass index [BMI] 22.0-22.9, adult
CPT/HCPCS: 36415; 74177; 76770; 80048; 80053; 80202; 81001; 82306; 83605; 83630; 83690; 83735; 84100; 84145; 84153; 84154; 85025; 85610; 85730; 87040; 87086; 87186; 87324; 87449; 87493; 87507; 93005; 94760; 94762; 96361; 96365; 96375; 96376; C9113; J0696; J1650; J2185; J2270; J2405; J2543; J3370; J3490; J7042; J7050; J7070; J7120; P9047